=== PATIENT | female | born 1995 | race Caucasian/White ===

== ENCOUNTER 2016-09-29 18:00 | Emergency (ER) | payer SELFPAY ==
[2016-09-29 18:14] VITALS: BMI 28.6
[2016-09-29 18:21] VITALS: TEMP 98.5
--- NOTE | 2016-09-29 19:47 | C.PDOC ---
History Of Present Illness 21 year old female presents to the ED with complaints of non-radiating numbness and tingling to her left hand since last night. Patient states it started yesterday at 23:00 and it got worse at 05:00. Denies weakness, slurred speech, visual changes, trauma, or any other complaints at this time. Time Seen by Provider: 09/29/16 19:47 Chief Complaint (Nursing): Upper Extremity Problem/Injury History Per: Patient History/Exam Limitations: no limitations Onset/Duration Of Symptoms: Hrs Current Symptoms Are (Timing): Still Present Severity: Mild Past Medical History Reviewed: Historical Data, Nursing Documentation, Vital Signs Vital Signs: Last Vital Signs Temp 98.5 F 09/29/16 18:20 Pulse 105 H 09/29/16 18:20 Resp 16 09/29/16 18:20 BP 107/71 09/29/16 18:20 Pulse Ox 100 09/29/16 21:23 - Medical History PMH: Depression - [facility] Procedures ARTIF RUPT MEMBRANES NEC (05/31/14) MANUAL ASSIST DELIV NEC (05/31/14) REPAIR OB LACERATION NEC (05/31/14) Family History: States: Diabetes - Social History Hx Tobacco Use: No Hx Alcohol Use: No Hx Substance Use: No - Immunization History Hx Tetanus Toxoid Vaccination: No Hx Influenza Vaccination: No Hx Pneumococcal Vaccination: No Review Of Systems Constitutional: Negative for: Fever, Chills Eyes: Negative for: Vision Change Cardiovascular: Negative for: Chest Pain, Palpitations Respiratory: Negative for: Cough, Shortness of Breath Gastrointestinal: Negative for: Nausea, Vomiting, Abdominal Pain Musculoskeletal: Negative for: Neck Pain, Back Pain Neurological: Positive for: Numbness (+Numbness and tingling to left hand). Negative for: Weakness, Change in Speech, Headache Physical Exam - Physical Exam Appears: Non-toxic, No Acute Distress Skin: Warm, Dry Head: Atraumatic, Normacephalic Eye(s): bilateral: Normal Inspection Oral Mucosa: Moist Chest: Symmetrical Cardiovascular: Rhythm Regular Respiratory: No Accessory Muscle Use, No Rales, No Rhonchi, No Wheezing Extremity: Normal ROM (+Moving all extemities), Capillary Refill (< 2 seconds), No Deformity Pulses: Left Radial: Normal, Right Radial: Normal Neurological/Psych: Oriented x3, Normal Speech, Normal Cognition, Normal Motor, Normal Sensation, Other (Neuro non-focal) ED Course And Treatment O2 Sat by Pulse Oximetry: 100 (Room air) Pulse Ox Interpretation: Normal - CT Scan/US Ct Head w/o contrast Other Rad Studies (CT/US): Read By Radiologist, Radiology Report Reviewed CT/US Interpretation: IMPRESSION: No CT evidence of acute intracranial abnormality. Ct Cervical SPine w/o contrast Other Rad Studies (CT/US): Read By Radiologist, Radiology Report Reviewed CT/US Interpretation: IMPRESSION: No definitive acute CT finding to correspond to reported history. More sensitive evaluation can be performed with MRI as warranted. Progress Note: CT Cervical Spine w/o contrast and CT Head w/o contrast ordered and reviewed. Reevaluation Time: 21:51 Reassessment Condition: Improved NIHSS Stroke Scale - Date/Time Evaluation Performed Date Performed: 09/29/16 Time Performed: 19:45 When Was NIHSS Performed: Baseline - How Severe is the Stroke Level of Consciousness: 0=Alert LOC to Questions: 0=Both comments correct LOC to commands: 0=Obeys both correctly Best Gaze: 0=Normal Visual: 0=No visual loss Facial: 0=Normal Motor Arm - Left: 0=No drift Motor Arm - Right: 0=No drift Motor Leg - Left: 0=No drift Motor Leg - Right: 0=No drift Limb Ataxia: 0=Absent Sensory: 0=Normal Best Language: 0=No aphasia Dysarthia: 0=Normal articulation Extinction & Inattention (Neglect): 0=Normal, no object Score: 0 Medical Decision Making Medical Decision Making: Upon provider reevaluation patient is feeling better, is medically stable, and requires no further treatment in the ED at this time. Patient will be discharged home . Counseling was provided and all questions were answered regarding diagnosis and need for follow up with the referred clinic and dr aguillon ( neurology). There is agreement to discharge plan. Return if symptoms persist or worsen. Disposition Counseled Patient/Family Regarding: Studies Performed, Diagnosis, Need For Followup - Disposition Referrals: [facility] [Outside] [facility] [Outside] Almita Aguillon MD [Staff Provider] - Disposition: HOME/ ROUTINE Disposition Time: 19:47 Condition: FAIR Instructions: Paresthesia (ED) - Clinical Impression Clinical Impression: Paresthesia of arm - Scribe Statement The provider has reviewed the documentation as recorded by the Scribe Nely Bermudez. Provider Attestation: All medical record entries made by the Scribe were at my direction and personally dictated by me. I have reviewed the chart and agree that the record accurately reflects my personal performance of the history, physical exam, medical decision making, and the department course for this patient. I have also personally directed, reviewed, and agree with the discharge instructions and disposition.
--- NOTE | 2016-09-29 21:05 | CT ---
EXAM: CT Head Without Intravenous Contrast CLINICAL HISTORY: 21 years old, female; Signs and symptoms; Numbness / parasthesia; Left; Additional info: Left paresthisias TECHNIQUE: Axial computed tomography images of the head/brain without intravenous contrast. This CT exam was performed using one or more of the following dose reduction techniques: automated exposure control, adjustment of the mA and/or kV according to patient size, and/or use of iterative reconstruction technique. COMPARISON: No relevant prior studies available. FINDINGS: Brain: No hemorrhage. No significant white matter disease. No edema. Ventricles: No hydrocephalus. Bones: Skull is intact. Sinuses: No acute sinusitis. Mastoid air cells: No mastoid effusion. IMPRESSION: No CT evidence of acute intracranial abnormality.
--- NOTE | 2016-09-29 21:08 | CT ---
EXAM: CT Cervical Spine Without Intravenous Contrast CLINICAL HISTORY: 21 years old, female; Signs and symptoms; Numbness; Additional info: Paresthisia left arm TECHNIQUE: Axial computed tomography images of the cervical spine without intravenous contrast. This CT exam was performed using one or more of the following dose reduction techniques: automated exposure control, adjustment of the mA and/or kV according to patient size, and/or use of iterative reconstruction technique. Coronal and sagittal reformatted images were created and reviewed. COMPARISON: No relevant prior studies available. FINDINGS: Vertebrae: No acute fracture. Discs/spinal canal/neural foramina: No acute findings. No severe spinal canal stenosis. Soft tissues: No acute findings. Lung apices: Unremarkable as visualized. IMPRESSION: No definitive acute CT finding to correspond to reported history. More sensitive evaluation can be performed with MRI as warranted.
[2016-09-29 22:10] VITALS: BP 111/68; PULSE 84; RESP 18; O2SAT 98
== END 2016-09-29 21:50 | disposition home or self-care (01) ==
LOC: C.ER 18:00
DX: R20.2 Paresthesia of skin (principal)

== ENCOUNTER 2018-07-11 23:02 | Emergency (ER) | payer SELFPAY ==
[2018-07-11 23:02] VITALS: BMI 28.6
[2018-07-11 23:22] VITALS: RESP 20
[2018-07-11] MEDS ORDERED: Sodium Chloride 0.9% 500 ML IV STA (23:39)
--- NOTE | 2018-07-11 23:39 | C.PDOC ---
History Of Present Illness 22 year old female presents to ED with complaints of headache and migraine for the past two week. Patient describes the headache as on and off, left-sided, and throbbing and stabbing. She also reports photophobia and nausea. Patient has a past medical history of migraines and reports that the last time she had a headache that lasted two weeks she had a seizure. Patient reports no neurology follow up for her past seizure and migraines and has no neurologist. Patient was initially taking Excedrin for her symptoms, but states it is no longer relieving her symptoms, prompting this visit. Patient denies fever, chills, sinus pressure, neck stiffness or rigidity, URI symptoms, vomiting. Chief Complaint (Nursing): Headache History Per: Patient History/Exam Limitations: no limitations Onset/Duration Of Symptoms: Intermittent Episodes, Other (2 weeks) Current Symptoms Are (Timing): Still Present Quality: Sharp, Other (left-sided, throbbing, stabbing) Associated Symptoms: Photophobia, Nausea. denies: Vomiting Past Medical History Reviewed: Historical Data, Nursing Documentation, Vital Signs Vital Signs: Last Vital Signs Temp 98.4 F 07/11/18 23:19 Pulse 89 07/11/18 23:19 Resp 20 07/11/18 23:19 BP 127/85 07/11/18 23:19 Pulse Ox 100 07/11/18 23:19 - Medical History PMH: Depression, Migraine, Seizures (2017) Surgical History: Tonsillectomy (T&A) - [facility] Procedures ARTIF RUPT MEMBRANES NEC (05/31/14) MANUAL ASSIST DELIV NEC (05/31/14) REPAIR OB LACERATION NEC (05/31/14) Family History: States: Diabetes - Social History Hx Tobacco Use: No Hx Alcohol Use: No Hx Substance Use: Yes - Immunization History Hx Tetanus Toxoid Vaccination: No Hx Influenza Vaccination: No Hx Pneumococcal Vaccination: No Review Of Systems Constitutional: Negative for: Fever, Chills, Weakness Eyes: Positive for: Other (photophobia ). Negative for: Redness ENT: Negative for: Ear Pain, Nose Discharge, Nose Congestion, Mouth Swelling Cardiovascular: Negative for: Chest Pain Respiratory: Negative for: Cough, Shortness of Breath Gastrointestinal: Positive for: Nausea. Negative for: Vomiting, Abdominal Pain Musculoskeletal: Negative for: Neck Pain, Back Pain Skin: Negative for: Rash Neurological: Positive for: Headache. Negative for: Weakness, Numbness, Dizziness Physical Exam - Physical Exam Appears: Well, Non-toxic, No Acute Distress Skin: Normal Color, Warm, Dry, No Rash Head: Atraumatic, Normacephalic Eye(s): bilateral: Normal Inspection, PERRL, EOMI, Other (no scleral icterus, no photophobia ) Ear(s): Bilateral: Normal (no drainage ) Nose: Normal Oral Mucosa: Moist Throat: Normal (no swelling or injection ), No Exudate, Other (airway patent ) Neck: Normal ROM, Supple, No Other (nuchal rigidity) Chest: Symmetrical Respiratory: No Accessory Muscle Use, No Rales, No Rhonchi, No Wheezing, Other (normal inspiratory effort) Back: Other (ambulating with steady upright gait ) Extremity: Normal ROM, Capillary Refill (<2 seconds) Extremity: Bilateral: Atraumatic, Normal Color And Temperature Pulses: Left Radial: Normal, Right Radial: Normal Neurological/Psych: Oriented x3, Normal Speech, Normal Cognition, Normal Cranial Nerves (grossly intact ), Normal Sensation ED Course And Treatment O2 Sat by Pulse Oximetry: 100 (on RA ) Pulse Ox Interpretation: Normal Progress Note: patient reports resolution of symptoms after medication. she states she feels weel enough to go home. Medical Decision Making Medical Decision Making: Impression: 22 year old with complaint of persistent migraine headache for the past 2 weeks. Plan: Patient given Compazine IVP, NaCl IV, Magnesium Sulfate IV, Toradol IVP, and Zofran IVP to alleviate headache. Urine test ordered for patient. Upon reassessment, patient is resting comfortably and in no distress. Patient is advised to follow up with PMD within 1-2 days.Patient is advised to return to ED if symptoms persist or worsen. Disposition Counseled Patient/Family Regarding: Diagnosis, Need For Followup, Rx Given - Disposition Referrals: Aniket Grossman MD [Staff Provider] - [facility] at [facility] [Outside] Disposition: HOME/ ROUTINE Disposition Time: 02:05 Condition: IMPROVED Prescriptions: Acetaminophen/Butalbital/Caf [Fioricet] 1 tab PO QID PRN 7 Days tab PRN Reason: Headache Instructions: Migraine Headache (DC) Forms: General Discharge Instructions, [facility] (Romansh), Work Excuse - Clinical Impression Clinical Impression: Migraine - PA / GALLERY HOST / Resident Statement MD/DO has reviewed & agrees with the documentation as recorded. (Sayda Newman) - Scribe Statement The provider has reviewed the documentation as recorded by the Scribe (Sayda Newman) All medical record entries made by the Scribe were at my direction and personally dictated by me. I have reviewed the chart and agree that the record accurately reflects my personal performance of the history, physical exam, medical decision making, and the department course for this patient. I have also personally directed, reviewed, and agree with the discharge instructions and disposition.
[2018-07-12] MEDS ORDERED: Sodium Chloride 0.9% 500 ML IV ONE (00:03)
[2018-07-12] MEDS ORDERED: Magnesium Sulfate 1 gm in D5W 1 GM/100 ML BAG IVPB STA (01:08)
[2018-07-12] MEDS ORDERED: Magnesium Sulfate 1 gm in D5W 1 GM/100 ML BAG IVPB ONE (01:18)
[2018-07-12 02:19] VITALS: BP 102/61; PULSE 67; TEMP 97.6
[2018-07-12 05:59] VITALS: O2SAT 100
== END 2018-07-12 02:19 | disposition home or self-care (01) ==
LOC: C.ER 23:02
DX: G43.909 Migraine, unspecified, not intractable, without status migrainosus (principal)
CPT/HCPCS: 81025; 96361; 96365; 96375; 99284; J0780; J1885; J2405; J3475; J7040